=== PATIENT | female | born 1970 | race Two or more races ===

== ENCOUNTER 2024-01-28 06:50 | Day surgery (SDC) | payer OTHER, SELFPAY ==
[2024-01-27 15:25] VITALS: BMI 35.2
[2024-01-28] VITALS (8 sets, daily range): BP systolic 100–126; BP diastolic 72–84; PULSE 67–88; RESP 12–16; TEMP 36.6–36.9; O2SAT 94–100; BMI 34.9
--- NOTE | 2024-01-28 07:41 | SUR.PREOP ---
pts states her last menstrual period was back in 2019. no HCG needed for this procedure.
[2024-01-28] MEDS: DiphenhydrAMINE INJ 50 MG/ML VIAL 25 MG IV (08:01)
[2024-01-28] MEDS: MIDAZOLAM INJ 1 MG/ML VIAL 2 ML (ASD USE ONLY) 2 MG IV (08:06)
[2024-01-28] MEDS: fentaNYL CIT INJ 50 mCg/ML AMP 2ML (ASD USE ONLY) IV (08:06)
== END 2024-01-28 09:26 | disposition home or self-care (01) ==
PROVIDERS: Referring Provider Surgery; Visit Provider Surgery
PROC: 0DBE8ZX Excision of Large Intestine, Via Natural or Artificial Opening Endoscopic, Diagnostic (ICD-10-PCS; CPT 45380; principal; 2024-01-28 07:30)
DX: K64.1 Second degree hemorrhoids (principal); K64.4 Residual hemorrhoidal skin tags
CPT/HCPCS: 45378; J1200; J2250; J3010